=== PATIENT | female | born 1965 | race African-American/Black ===

== ENCOUNTER → 2019-09-19 | Outpatient (CLI) | payer OTHER ==
[~2019-09-19] MED LIST: BACTRIM DS TAB1 EACH PO; CIPROFLOXACIN500 M1 PO; LANTUS SUBQ; MEDROLDOSEPACK PO; NOVOLOG100 UNIT/1 SQ; PYRIDIUM200 MG PO; ZPAK PO
== END ==
LOC: ULTRA 14:11
DX: N88.8 Other specified noninflammatory disorders of cervix uteri (principal); N93.0 Postcoital and contact bleeding

== ENCOUNTER → 2019-10-01 | Outpatient (CLI) | payer OTHER | LOC: RAD 13:59 | DX: Z12.31 Encounter for screening mammogram for malignant neoplasm of breast (principal) ==

== ENCOUNTER → 2019-11-13 | Outpatient (CLI) | payer OTHER ==
--- NOTE | 2019-11-13 12:41 | EKG ---
[address] [address] ELECTROCARDIOGRAM REPORT Name: AZALEA ANGULO Room #: REG CLI Maribeth#: [id number] Admission: 11/13/19 Attend Phys: Physician not on staff Discharge: Date of : 61 Report #: [id number] THIS REPORT FOR: //name// [facility] Test Date: 2019-11-13 Test Time: 10:34:41 Pat Name: AZALEA ANGULO Department: Room: Gender: F [employer] Teacher: [employer] WAITE : 1965 Requested By: Physician staff Order Number: [id number] MD: Augusto Rivera Measurements Intervals [place] Rate: 54 P: 41 KS: 153 QRS: 13 QRSD: 90 T: 54 QT: 449 QTc: 426 Interpretive Statements Sinus rhythm Compared to ECG 07/17/2009 17:27:36 T-wave abnormality no longer present Possible ischemia no longer present Electronically Signed On 11-13-2019 12:41:14 [employer] PROF[employer] ENGLISH by Augusto Rivera [email or web address] <ELECTRONICALLY SIGNED> By: Augusto Rivera MD 11/13/19 [id number] [id number] Augusto Rivera MD /CRISTA
== END ==
LOC: RAD 09:46
DX: N95.0 Postmenopausal bleeding (principal)